=== PATIENT | male | born 1970 | race Caucasian/White ===

== ENCOUNTER 2017-01-27 16:32 | Emergency (ER) | payer BC ==
[~2017-01-27] VITALS: Ht 175.3 cm; Wt 111.4 kg
[~2017-01-27 16:32] MED LIST: FLEXERIL 1010 MG/TAB PO; LOPRESSOR 550 MG/TAB PO; LORTAB 5/500 501 TAB PO; NO HOME MEDICATIONS; PREDNISONE20 MG PO; VASOTEC 2.2.5 MG/TAB PO
[2017-01-27 16:34] VITALS: TEMP 98.4
[2017-01-27] MEDS ORDERED: PRINZIDE 25 MG-1 TAB PO (16:38)
[2017-01-27 17:27] LABS: BASO % 0.3 % (0.0-2.0); EOS # 0.2 (0.0-0.7); EOS % 1.5 % (0-4.0); GRAN # 9.5 (1.4-6.5); GRAN % 73.4 % (42.2-75.2); HEMATOCRIT 43.8 % (42.0-52.0); LYMPH % 15.7 % (20.0-51.0); MEAN CELL VOLUME 90 fl (80.0-100.0); MEAN CORPUSCULAR HEMOGLOBIN 29 pg (27.0-31.0); MEAN CORPUSCULAR HGB CONC 32 g/dl (33.0-37.0); MEAN PLATELET VOLUME 9.2 fl (7.4-10.4); MONO # 1.1 (0.1-0.6); MONO % 8.6 % (1.7-9.3); PLATELET COUNT 247 K/mm3 (130-400); RED BLOOD COUNT 4.87 M/mm3 (4.20-5.60)
[2017-01-27 17:36] LABS: PROTHROMBIN TIME 10.5 SECONDS (9.7-12.8)
[2017-01-27 17:37] LABS: ADJUSTED CALCIUM 9.4 mg/dL (8.4-10.2); ALANINE AMINOTRANSFERASE 38 U/L (21-72); ALBUMIN 3.8 gm/dL (3.5-5.0); ALKALINE PHOSPHATASE 93 U/L (50-136); ANION GAP 10 mmol/L (7-16); BILIRUBIN,TOTAL 0.3 mg/dL (0.0-1.0); BLOOD UREA NITROGEN 18 mg/dL (9-20); CALCIUM 9.2 mg/dL (8.4-10.2); CARBON DIOXIDE 30 mmol/L (22-30); CHLORIDE 99 mmol/L (98-107); GLUCOSE 89 mg/dL (74-106); POTASSIUM 4.3 mmol/L (3.4-5.0); SODIUM 138 mmol/L (137-145); TOTAL PROTEIN 7.2 gm/dL (6.4-8.2)
[2017-01-27 17:39] LABS: PARTIAL THROMBOPLASTIN TIME 30.9 SECONDS (26.0-37.0)
[2017-01-27 17:49] LABS: TROPONIN-I < 0.012 ng/mL (0.000-0.034)
[2017-01-27 22:00] VITALS: BP 146/114; PULSE 94
== END 2017-01-27 22:02 | disposition home or self-care (01) ==
LOC: COL.ER 16:32
PROVIDERS: Emergency Medicine
DX: R07.89 Other chest pain (principal); I10 Essential (primary) hypertension; F17.210 Nicotine dependence, cigarettes, uncomplicated; Z98.890 Other specified postprocedural states
CPT/HCPCS: J2270

== ENCOUNTER 2019-05-02 10:07 | Inpatient (IN) | payer BC ==
[~2019-05-02] VITALS: Ht 175.3 cm; Wt 109.1 kg
[~2019-05-02 10:07] MED LIST changes: +PRINZIDE 25 MG-1 TAB PO
[2019-05-02] MEDS ORDERED: ASPIRIN 81M81 MG/TA2 PO (10:35)
[2019-05-02 10:40] LABS: BASO % 0.3 % (0.0-2.0); EOS # 0.1 (0.0-0.7); EOS % 0.8 % (0-4.0); GRAN % 76.4 % (42.2-75.2); HEMATOCRIT 48.2 % (42.0-52.0); HEMOGLOBIN 15.3 g/dl (13.5-18.0); LYMPH # 1.8 (1.2-3.4); MEAN CELL VOLUME 86 fl (80.0-100.0); MEAN CORPUSCULAR HEMOGLOBIN 27 pg (27.0-31.0); MEAN CORPUSCULAR HGB CONC 32 g/dl (33.0-37.0); MEAN PLATELET VOLUME 9.3 fl (7.4-10.4); PLATELET COUNT 272 K/mm3 (130-400); RED BLOOD COUNT 5.62 M/mm3 (4.20-5.60); REDCELL DISTRIBUTION WIDTH-CV 13.6 % (11.5-14.5)
[2019-05-02 10:47] LABS: ALBUMIN 4.1 gm/dL (3.5-5.0); BILIRUBIN,TOTAL 0.4 mg/dL (0.0-1.0); CALCIUM 9.3 mg/dL (8.4-10.2); CREATININE, serum 1.07 (0.66-1.25); MAGNESIUM 1.8 mg/dL (1.6-2.3); POTASSIUM 3.9 mmol/L (3.4-5.0); TOTAL PROTEIN 7.7 gm/dL (6.4-8.2)
[2019-05-02 10:59] LABS: TROPONIN-I 0.033 ng/mL (0.000-0.035)
[2019-05-02 11:17] LABS: TSH w REFLEX 2.37 uIU/mL (0.465-4.680)
[2019-05-02 11:40] LABS: COLLECTION METHOD CLEAN CATCH
[2019-05-02 11:52] LABS: PH 6 (5-8); SQUAMOUS EPITHELIAL 0-2 /hpf; URINE APPEARANCE Clear; URINE BACTERIA None Seen /hpf; URINE BILIRUBIN Negative (NEGATIVE); URINE BLOOD Negative (NEGATIVE); URINE COLOR Straw; URINE GLUCOSE Negative (NEGATIVE); URINE KETONE Negative (NEGATIVE); URINE LEUKOCYTE ESTERASE Negative (NEGATIVE); URINE NITRATE Negative (NEGATIVE); URINE PROTEIN(semi-quant) Negative (NEGATIVE); URINE RBC 0-2 /hpf; URINE UROBILINOGEN Negative (NEGATIVE)
[2019-05-02 15:00] VITALS: BP 124/89; PULSE 90; TEMP 98
--- NOTE | 2019-05-02 16:26 | NUR ---
Patient is resting on his chair watching TV. patient seem pleasant A/O.
[2019-05-02 17:31] VITALS: BP 117/53; PULSE 107; TEMP 97.9
--- NOTE | 2019-05-02 17:47 | NUR ---
Patient took his eating snacks in his room. he is also watching TV at the moment. Patient was admitted for observation due to heart palpitation at work. Patient said his HR was over 200 when assessed by his work nurse. patient HR is vurrentlu within normal range.
--- NOTE | 2019-05-02 18:33 | NUR ---
Received call of elevated troponin which has not changed from prior. Did speak with provider regarding this.
--- NOTE | 2019-05-02 19:30 | NUR ---
Received report from day shift nurse. Seen patient sitting in the bed, eating dinner. With IV at left AC. Informed patient about diet restriction of no caffeine until after stresstest or echo is complete. and NPO by midnight. Patient acknowledge and shows understanding. Patient denies any pain.
--- NOTE | 2019-05-02 19:33 | NUR ---
Patient is in bed watch TV. IV fluid running.
[2019-05-02 19:49] VITALS: BP 117/60; PULSE 94; TEMP 98.9
[2019-05-02 23:41] VITALS: BP 120/58; PULSE 64; PULSE 92; TEMP 98
[2019-05-03] VITALS (8 sets, daily range): BP systolic 107–190; BP diastolic 61–105; PULSE 78–129; TEMP 98.1–98.8
--- NOTE | 2019-05-03 06:11 | NUR ---
Patient states he wanted to be out of the hospital and verbalized being upset that his doctor didn't inform him about the stress test although this nurse informed him about diet restrictions that he cannot have caffeine and npo post midnight due to stress test that he will have this morning. He's upset that he cannot drink water as well.
[2019-05-03 06:42] LABS: BASO # 0.1 (0.0-0.2); BASO % 0.5 % (0.0-2.0); EOS # 0.3 (0.0-0.7); EOS % 3.2 % (0-4.0); GRAN % 66.7 % (42.2-75.2); HEMATOCRIT 45.6 % (42.0-52.0); HEMOGLOBIN 14.2 g/dl (13.5-18.0); LYMPH % 19.1 % (20.0-51.0); MEAN CELL VOLUME 88 fl (80.0-100.0); MEAN CORPUSCULAR HEMOGLOBIN 27 pg (27.0-31.0); MEAN CORPUSCULAR HGB CONC 31 g/dl (33.0-37.0); MEAN PLATELET VOLUME 9.4 fl (7.4-10.4); MONO # 1.1 (0.1-0.6); MONO % 10.1 % (1.7-9.3); PLATELET COUNT 239 K/mm3 (130-400); REDCELL DISTRIBUTION WIDTH-CV 13.7 % (11.5-14.5)
[2019-05-03 06:55] LABS: CHOLESTEROL RISK RATIO 4.7
--- NOTE | 2019-05-03 10:48 | NUR ---
CAMRON met with the patient to discuss discharge plan. 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 He reports independence with ADLs and does not have any DME. The patient's PCP is Dr. Jada Monique and he receives his medications at [facility]. He reports no difficulties obtaining his meds. The patient does not have advanced directives completed, but he was interested in obtaining a form for DPOA-HC. CAMRON provided. The patient plans to return home with his fiancee upon discharge. No additional needs at this time.
[2019-05-03] MEDS ORDERED: CLEOCIN HC150 MG/CAP PO (15:29)
[2019-05-03] MEDS ORDERED: LOPRESSOR 225 MG/TAB PO (15:29)
--- NOTE | 2019-05-03 16:01 | NUR ---
patient had loop recorder placed by , Dr. Estrella gave go ahead for dischagre, hospitalist put in discharge orders, I discussed discharge instructions, instructed to take meds as prescribed, and scripts sent to pharmacy for him, first dose of Abx given prior to leaving, discussed bathing restrictions with loop incision site, discussed smoking cessation and low sodium diet with him, IV and tele removed, ambulatory and leaving with his , I escoted him outthe door
== END 2019-05-03 16:03 | disposition home or self-care (01) | DRG 261 ==
LOC: COL.ER 10:07 → MEDICAL 12:54
PROVIDERS: Emergency Medicine; Physician Assistant; ADMIT Hospitalist
PROC: 0JH602Z Insertion of Monitoring Device into Chest Subcutaneous Tissue and Fascia, Open Approach (ICD-10-PCS; principal; 2019-05-02)
DX: I48.91 Unspecified atrial fibrillation (principal); I50.20 Unspecified systolic (congestive) heart failure; I42.0 Dilated cardiomyopathy; I10 Essential (primary) hypertension; F17.210 Nicotine dependence, cigarettes, uncomplicated; I11.0 Hypertensive heart disease with heart failure; E66.9 Obesity, unspecified; Z79.82 Long term (current) use of aspirin; Z88.0 Allergy status to penicillin
CPT/HCPCS: 99231-AI; A9500; J1650; J2785; J7030; Q9967

== ENCOUNTER 2020-01-12 16:05 | Emergency (ER) | payer BC ==
[~2020-01-12] VITALS: Ht 175.3 cm; Wt 113.6 kg
[~2020-01-12 16:05] MED LIST changes: +ASPIRIN 81M81 MG/TA2 PO; +CLEOCIN HC150 MG/CAP PO; +LOPRESSOR 225 MG/TAB PO
[2020-01-12 16:24] VITALS: TEMP 98.8
[2020-01-12] MEDS ORDERED: WELLBUTRIN SR100 M1 PO (17:48)
[2020-01-12 18:01] LABS: BASO # 0.1 (0.0-0.2); BASO % 0.4 % (0.0-2.0); EOS # 0.3 (0.0-0.7); EOS % 2.9 % (0-4.0); GRAN # 7.8 (1.4-6.5); GRAN % 67.9 % (42.2-75.2); HEMATOCRIT 39.5 % (42.0-52.0); HEMOGLOBIN 12.8 g/dl (13.5-18.0); LYMPH # 1.9 (1.2-3.4); LYMPH % 16.8 % (20.0-51.0); MEAN CELL VOLUME 87 fl (80.0-100.0); MEAN CORPUSCULAR HEMOGLOBIN 28 pg (27.0-31.0); MEAN CORPUSCULAR HGB CONC 32 g/dl (33.0-37.0); MEAN PLATELET VOLUME 8.8 fl (7.4-10.4); MONO # 1.3 (0.1-0.6); MONO % 11.4 % (1.7-9.3); PLATELET COUNT 288 K/mm3 (130-400); RED BLOOD COUNT 4.55 M/mm3 (4.20-5.60)
[2020-01-12 18:12] LABS: ALBUMIN 3.6 gm/dL (3.5-5.0); BILIRUBIN,TOTAL 0.3 mg/dL (0.0-1.0); C-REACTIVE PROTEIN 4.6 mg/dL (0.0-0.9); CALCIUM 8.5 mg/dL (8.4-10.2); CREATININE, serum 1.1 (0.66-1.25); POTASSIUM 3.7 mmol/L (3.4-5.0)
[2020-01-12] MEDS ORDERED: ELIQUIS 5MG PO (19:01)
[2020-01-12 19:23] VITALS: BP 129/84; PULSE 83
== END 2020-01-12 19:25 | disposition home or self-care (01) ==
LOC: COL.ER 16:05
PROVIDERS: Emergency Medicine
DX: M79.662 Pain in left lower leg (principal); I10 Essential (primary) hypertension; F17.210 Nicotine dependence, cigarettes, uncomplicated; Z79.82 Long term (current) use of aspirin; Z88.0 Allergy status to penicillin

== ENCOUNTER → 2020-01-15 | Outpatient (CLI) | payer BC ==
[~2020-01-15] MED LIST changes: +ELIQUIS 5MG PO; +WELLBUTRIN SR100 M1 PO
== END ==
LOC: COL.VAS 11:45
DX: M79.662 Pain in left lower leg (principal)

== ENCOUNTER 2020-07-28 09:32 | Inpatient (IN) | payer BC ==
[~2020-07-28] VITALS: Ht 175.3 cm; Wt 106.8 kg
[2020-07-28] VITALS (206 sets, daily range): BP systolic 58–146; BP diastolic 25–87; PULSE 83–113; TEMP 98; O2SAT 90–99
[~2020-07-28 09:32] MED LIST changes: -WELLBUTRIN SR100 M1 PO; +WELLBUTRIN SR150 M1 PO
[2020-07-28 10:11] LABS: HEMATOCRIT 41.9 % (42.0-52.0); HEMOGLOBIN 12.7 g/dl (13.5-18.0); MEAN CELL VOLUME 82 fl (80.0-100.0); MEAN CORPUSCULAR HEMOGLOBIN 25 pg (27.0-31.0); MEAN CORPUSCULAR HGB CONC 30 g/dl (33.0-37.0); MEAN PLATELET VOLUME 8.9 fl (7.4-10.4); PLATELET COUNT 391 K/mm3 (130-400); RED BLOOD COUNT 5.13 M/mm3 (4.20-5.60); REDCELL DISTRIBUTION WIDTH-CV 15.9 % (11.5-14.5)
[2020-07-28 10:25] LABS: ALANINE AMINOTRANSFERASE 26 U/L (4-49); ALBUMIN 3.5 gm/dL (3.5-5.0); ALKALINE PHOSPHATASE 118 U/L (50-136); ANION GAP 9 mmol/L (7-16); AST,SGOT 30 U/L (15-37); BILIRUBIN,TOTAL 0.9 mg/dL (0.0-1.0); BLOOD UREA NITROGEN 16 mg/dL (9-20); CALCIUM 8.5 mg/dL (8.4-10.2); CARBON DIOXIDE 25 mmol/L (22-30); CHLORIDE 97 mmol/L (98-107); CREATININE, serum 0.94 (0.66-1.25); GLUCOSE 196 mg/dL (74-106); LIPASE 27 U/L (23-300); POTASSIUM 4.6 mmol/L (3.4-5.0); SODIUM 131 mmol/L (137-145); TOTAL PROTEIN 7.4 gm/dL (6.4-8.2)
[2020-07-28 10:30] LABS: COLLECTION METHOD CLEAN CATCH
[2020-07-28 10:37] LABS: TROPONIN-I < 0.012 ng/mL (0.000-0.035)
[2020-07-28 10:43] LABS: MUCOUS Present /lpf; PH 5 (5-8); SQUAMOUS EPITHELIAL 0-2 /hpf; URINE APPEARANCE Cloudy; URINE BACTERIA Rare /hpf; URINE BILIRUBIN Positive (NEGATIVE); URINE BLOOD Negative (NEGATIVE); URINE COLOR Amber; URINE GLUCOSE Negative (NEGATIVE); URINE KETONE Trace (NEGATIVE); URINE LEUKOCYTE ESTERASE Negative (NEGATIVE); URINE NITRATE Negative (NEGATIVE); URINE PROTEIN(semi-quant) 2+ (NEGATIVE)
[2020-07-28 11:07] LABS: ANISOCYTOSIS 1+; BAND 15 % (0-10); HYPOCHROMIA 1+; LYMPHOCYTE 7 % (20.0-51.0); NEUTROPHILS 73 % (42.0-75.2); PLATELET ESTIMATE NORMAL (NORMAL)
--- NOTE | 2020-07-28 16:40 | NUR ---
PATIENT BROUGHT BACK FROM OR VIA BED. PACU STAFF AND TOBACCO PRIZER BRAD GOEL AT BEDSIDE. REPORT RECIEVED. PATIENTS BLOOD PRESSURE LOW, RETAKEN, TURNED OF EPIDURAL. FLUID BOLUS STARTED. PATIENT IS DIAPHORETIC, AND PALE. DENIES PAIN OR NAUSEA. DR. PARHAM MADE AWARE OF STATUS, TELEPHONE ORDERS RECIEVED TO START LEVOPHED BP ARE NOT INCREASING. OXYGEN AT 4L VIA NC. LARGE ABDOMINAL INCISION WITH SCOTT AND ABD PADS WITH SOME OLD BLOODY DRAINAGE NOTED. SURGEON AT BEDSIDE TO START RIGHT IJ. RT AT BEDSIDE TO DRAW ABG. CONSULT ORDERED FOR PULMONOLOGY. PATIENT REMAINS DROWSY, BUT ANSWERS APPROPRIATLY. X-RAY AT BEDSIDE FOR CHEST X RAY. CALL LIGHT AT BEDSIDE. HOURLY BLOOD SUGARS TAKEN AT THIS TIME. WILL CONTINUE TO MONITOR.
--- NOTE | 2020-07-28 16:59 | NUR ---
VERBAL ORDERS RECIEVED FROM DR. PARHAM TO START LEVOPHED FOR DECREASED BLOOD PRESSURES. STARTED PER ORDERS. WILL MONITOR.
[2020-07-28 17:18] LABS: ARTERIAL BLD GAS O2 SATURATION 96.5 % (92-100); ARTERIAL BLD GAS TCO2 CT 25.1; ARTERIAL BLOOD GAS BASE EXCESS -2.4 (-2-2); ARTERIAL BLOOD GAS HCO3 23.7 meq/L (22-26); ARTERIAL BLOOD GAS PCO2 46.2 mmHg (35-45); ARTERIAL BLOOD GAS PO2 95.1 mmHg (80-100); ARTERIAL BLOOD GAS pH 7.33 (7.35-7.45)
--- NOTE | 2020-07-28 17:30 | NUR ---
DR. ARMENTA AT BEDSIDE GIVEN ORDERS TO HOLD LOVENOX, REPEAT ABG AND LACTIC. IN AGREEMENT WITH FLUIDS RUNNING AT 125ML/HR. REQUESTS HE BE PLACED ON BI-PAP. PATIENT IN AGREEMENT. RT AT BEDSIDE FOR SET UP. BRAD GOEL AT BEDSIDE, RESUMED EPIDURAL. CALL LIGHT AVAILABLE, WILL CONTINUE TO MONITOR.
--- NOTE | 2020-07-28 20:23 | NUR ---
Received report from TORREY Harp. All medications verified and all questions answered. No complaints or concerns noted at this. VSS. Will resume care at this time.
[2020-07-28 23:58] LABS: ARTERIAL BLD GAS O2 SATURATION 95.7 % (92-100); ARTERIAL BLD GAS TCO2 CT 25.6; ARTERIAL BLOOD GAS BASE EXCESS 0.2 (-2-2); ARTERIAL BLOOD GAS HCO3 24.4 meq/L (22-26); ARTERIAL BLOOD GAS PCO2 38.2 mmHg (35-45); ARTERIAL BLOOD GAS PO2 77.8 mmHg (80-100); ARTERIAL BLOOD GAS pH 7.42 (7.35-7.45)
[2020-07-29] VITALS (667 sets, daily range): BP systolic 118–145; BP diastolic 69–90; PULSE 104–114; TEMP 97.6–98.3; O2SAT 76–99
[2020-07-29 05:12] LABS: BASO # 0.1 (0.0-0.2); BASO % 0.2 % (0.0-2.0); GRAN # 25.2 (1.4-6.5); GRAN % 84.6 % (42.2-75.2); LYMPH # 1.1 (1.2-3.4); LYMPH % 3.7 % (20.0-51.0); MEAN CELL VOLUME 82 fl (80.0-100.0); MEAN CORPUSCULAR HGB CONC 31 g/dl (33.0-37.0); MEAN PLATELET VOLUME 9.2 fl (7.4-10.4); MONO # 3.2 (0.1-0.6); MONO % 10.7 % (1.7-9.3); PLATELET COUNT 307 K/mm3 (130-400); REDCELL DISTRIBUTION WIDTH-CV 15.8 % (11.5-14.5)
--- NOTE | 2020-07-29 05:13 | NUR ---
Spoke with Dr. Clark with [facility] and relayed patients last several blood sugar finger sticks were within goal range of 140-180 for insulin gtt protocol. Received orders for Q4hr blood sugar checks on a mid sliding scale.
[2020-07-29 05:23] LABS: ALBUMIN 2.5 gm/dL (3.5-5.0); BILIRUBIN,TOTAL 1.1 mg/dL (0.0-1.0); CALCIUM 7.6 mg/dL (8.4-10.2); CREATININE, serum 1.1 (0.66-1.25); HEMATOCRIT 30.2 % (42.0-52.0); HEMOGLOBIN 9.2 g/dl (13.5-18.0); MAGNESIUM 1.9 mg/dL (1.6-2.3); MEAN CORPUSCULAR HEMOGLOBIN 25 pg (27.0-31.0); PHOSPHOROUS 2.6 mg/dL (2.5-4.5); POTASSIUM 4.2 mmol/L (3.4-5.0); TOTAL PROTEIN 5.4 gm/dL (6.4-8.2)
[2020-07-29 05:28] LABS: INR 1.5 (0.8-3.0); PROTHROMBIN TIME 16.4 SECONDS (9.7-12.8)
--- NOTE | 2020-07-29 05:30 | NUR ---
Spoke with Dr. Clark of [facility] and relayed critical WBC count of 29.7 and stated that patient was on several abxs and had infectious disease consulted. No new orders at this time.
[2020-07-29 05:44] LABS: ARTERIAL BLD GAS O2 SATURATION 90.6 % (92-100); ARTERIAL BLD GAS TCO2 CT 25.3; ARTERIAL BLOOD GAS BASE EXCESS 0.1 (-2-2); ARTERIAL BLOOD GAS HCO3 24.2 meq/L (22-26); ARTERIAL BLOOD GAS PCO2 37.2 mmHg (35-45); ARTERIAL BLOOD GAS PO2 55.1 mmHg (80-100); ARTERIAL BLOOD GAS pH 7.43 (7.35-7.45)
--- NOTE | 2020-07-29 16:11 | NUR ---
Computing Systems Mechanic met with the patient to complete intake. The patient lives in [place] with his life partner of 14 years, Marilee. The patient denies DME use and is independent. The patient's PCP is Dr. Monique and patient receives medications from [facility]. The patient does not have advanced directives in the EMR and was not interested in DPOA-HC form. The patient is not but has a daughter in [place] . No other children. The patient plans to return home at discharge with Marilee providing transportation. The patient is currently on oxygen but is not on it at baseline. Discharge disposition: Home with life partner Marilee
--- NOTE | 2020-07-29 19:30 | NUR ---
Patient resting quielty in bed watching television. Reports tolerable pain level controlled by epidural. HR mid-high 120s; other vitals within normal limits. Patient noted to be frequently burping. Bowel sounds are hypoactive upon auscultation. Some shadowing noted to abdominal midline dressing, although this is unchanged from prior shift, as it has been previously marked. All three lap sites are clean, dry, and intact. No further needs noted at this time.
[2020-07-29 23:32] LABS: HEMATOCRIT 29.5 % (42.0-52.0)
--- NOTE | 2020-07-29 23:36 | NUR ---
Patient's HR noted to be high 120s to low 130s since approximately 2099. Other vitals signs within normal limits. Patient states pain is well controlled, although he is experiencing a lot of gas and some nausea. Patient noted to be burping quite frequently, stating he feels as though he has something caught in the back of his throat. PRN zofran administered at 2040. Patient experiencing episodes of emesis with HR sustaining 150-160s despite its administration. PRN phenergan administered and Dr. Fernandez notified. Received orders to obtain an H & H and to consult hospitalist. Rosalinda notified of consult and H & H results.
[2020-07-30] VITALS (647 sets, daily range): BP systolic 124–150; BP diastolic 59–94; PULSE 106–133; TEMP 97.1–98.6; O2SAT 62–100
[2020-07-30 05:21] LABS: MEAN CELL VOLUME 82 fl (80.0-100.0); MEAN CORPUSCULAR HGB CONC 31 g/dl (33.0-37.0); MEAN PLATELET VOLUME 9.1 fl (7.4-10.4); PLATELET COUNT 362 K/mm3 (130-400); RED BLOOD COUNT 3.84 M/mm3 (4.20-5.60); REDCELL DISTRIBUTION WIDTH-CV 16.1 % (11.5-14.5)
[2020-07-30 05:25] LABS: HEMATOCRIT 31.3 % (42.0-52.0); HEMOGLOBIN 9.6 g/dl (13.5-18.0); MEAN CORPUSCULAR HEMOGLOBIN 25 pg (27.0-31.0)
[2020-07-30 05:26] LABS: ARTERIAL BLD GAS O2 SATURATION 94.2 % (92-100); ARTERIAL BLOOD GAS BASE EXCESS 3.3 (-2-2); ARTERIAL BLOOD GAS HCO3 27.7 meq/L (22-26); ARTERIAL BLOOD GAS PCO2 41.5 mmHg (35-45); ARTERIAL BLOOD GAS PO2 69.8 mmHg (80-100); ARTERIAL BLOOD GAS pH 7.44 (7.35-7.45)
[2020-07-30 05:28] LABS: INR 1.3 (0.8-3.0); PROTHROMBIN TIME 14.6 SECONDS (9.7-12.8)
[2020-07-30 05:32] LABS: ALBUMIN 2.8 gm/dL (3.5-5.0); BILIRUBIN,TOTAL 0.5 mg/dL (0.0-1.0); CALCIUM 7.8 mg/dL (8.4-10.2); CREATININE, serum 1.08 (0.66-1.25); POTASSIUM 4.5 mmol/L (3.4-5.0)
[2020-07-30 05:45] LABS: BAND 1 % (0-10); LYMPHOCYTE 6 % (20.0-51.0); NEUTROPHILS 90 % (42.0-75.2); PLATELET ESTIMATE NORMAL (NORMAL)
[2020-07-30 05:46] LABS: ANISOCYTOSIS 1+; HYPOCHROMIA 3+
--- NOTE | 2020-07-30 08:00 | NUR ---
Midline surgical dressing changed. Incision edges well approximated, no redness, minimal serosanguinous dranige near naval.
--- NOTE | 2020-07-30 09:50 | NUR ---
Initial visit; Patient thanked Chucking Machine Operator for looking in on him and offering God's blessings and to keep him in her prayers.
[2020-07-30 09:51] LABS: MAGNESIUM 2.4 mg/dL (1.6-2.3); PHOSPHOROUS 3.4 mg/dL (2.5-4.5)
--- NOTE | 2020-07-30 18:33 | NUR ---
Pt's scrotum has been kept elevated throughout the day
--- NOTE | 2020-07-30 19:40 | NUR ---
Received report from TORREY You. All medications verified and all questions answered. VSS. Surgical site and dressing assess, appears CDI. No concerns or complaints noted from patient at this time. Patient up watching TV in recliner. Will resume care at this time.
[2020-07-31] VITALS (255 sets, daily range): BP systolic 112–133; BP diastolic 62–82; PULSE 108–127; TEMP 98.3–99.4; O2SAT 75–100
[2020-07-31 05:19] LABS: MEAN CELL VOLUME 83 fl (80.0-100.0); MEAN CORPUSCULAR HGB CONC 30 g/dl (33.0-37.0); MEAN PLATELET VOLUME 9.2 fl (7.4-10.4); PLATELET COUNT 389 K/mm3 (130-400); REDCELL DISTRIBUTION WIDTH-CV 16.1 % (11.5-14.5)
[2020-07-31 05:24] LABS: HEMATOCRIT 30.7 % (42.0-52.0); HEMOGLOBIN 9.2 g/dl (13.5-18.0); MEAN CORPUSCULAR HEMOGLOBIN 25 pg (27.0-31.0)
--- NOTE | 2020-07-31 05:24 | NUR ---
Physician not notified of critical WBC value d/t value trending down.
[2020-07-31 05:25] LABS: INR 1.3 (0.8-3.0)
[2020-07-31 05:32] LABS: ALBUMIN 2.7 gm/dL (3.5-5.0); BILIRUBIN,TOTAL 0.6 mg/dL (0.0-1.0); CALCIUM 7.7 mg/dL (8.4-10.2); CREATININE, serum 1.05 (0.66-1.25); MAGNESIUM 2.3 mg/dL (1.6-2.3); PHOSPHOROUS 3.3 mg/dL (2.5-4.5); TOTAL PROTEIN 5.8 gm/dL (6.4-8.2)
[2020-07-31 05:39] LABS: PRE ALBUMIN 7.3 mg/dL (17.6-36.0)
[2020-07-31 05:44] LABS: ARTERIAL BLD GAS O2 SATURATION 90.7 % (92-100); ARTERIAL BLD GAS TCO2 CT 29.1; ARTERIAL BLOOD GAS BASE EXCESS 2.8 (-2-2); ARTERIAL BLOOD GAS HCO3 27.8 meq/L (22-26); ARTERIAL BLOOD GAS PCO2 44.9 mmHg (35-45); ARTERIAL BLOOD GAS PO2 60.4 mmHg (80-100); ARTERIAL BLOOD GAS pH 7.41 (7.35-7.45)
[2020-07-31 07:17] LABS: ANISOCYTOSIS 1+; EOSINOPHIL 1 % (0-4); HYPOCHROMIA 4+; LYMPHOCYTE 7 % (20.0-51.0); NEUTROPHILS 79 % (42.0-75.2); PLATELET ESTIMATE NORMAL (NORMAL)
--- NOTE | 2020-07-31 10:57 | NUR ---
Report phoned to TORREY Norton
--- NOTE | 2020-07-31 11:30 | NUR ---
Pt transfered to Surgical Floor via wheelchair - all belongings sent with pt - Marilee with pt as well. Pt tolerated transfer well with no compromise to Epidural or PICC. Recieved by TORREY Norton - vitals taken and stable. Pt did ambulate from entrance of room around bed to chair with standby assistance - pt out of breath once seated however recovered quickly
--- NOTE | 2020-07-31 11:33 | NUR ---
Patient to room from ICU via wheelchair. Ambulates from doorway to recliner. Gait slow and steady. Alert and oriented x4. Oxygen on at 3L/NC. Denies shortness of air. Lungs CTA in upper lobes, diminished in lower lobes. Bowel sounds hypoactive. Abd distended, firm. Midline abd incision with dressing intact, small amount of serous drainage noted on dressing. Lap sites x3 to left abd with bandaids CDI. Patient has scrotal swelling and scrotum elevated with hand towel. PICC line to right upper arm with Flagyl infusing in one port and TPN infusing at 70mL/hr in the other port. INT to left AC without redness/swelling/discharge. Epidural in place. Rates pain 6/10 in abd, says when he coughs the pain is sharp, otherwise it is a throb pain. [place] to room. Significant other in room with the patient. Patient has water. Denies additioanl needs at this time.
--- NOTE | 2020-07-31 13:32 | NUR ---
Sitting up in chair watching TV. Patient attempted to eat some clear liquid lunch but is having nausea and has had a couple episodes of emesis. Administer Zofran as prescribed at this time. Patient denies additional needs at this time.
--- NOTE | 2020-07-31 14:38 | NUR ---
Patient requests to walk into bathroom. Patient ambulates into bathroom with standby assist of one. Gait slow but steady. A little nauseated and one episode of emesis initially but then resolved. Patient reports that the Zofran helped a lot. Patient able to void. Ambulates back to chair. Legs and scrotum elevated. Patient denies additional needs at this time.
--- NOTE | 2020-07-31 16:00 | NUR ---
Patient sitting up in chair. Has had a couple more episodes of emesis. Patient says that he had a conversation earlier with Dr. Nelson regarding placing a NG tube. Patient says that he understands why it was recommended, not ready to commit to getting one. Says that he wants to give it overnight to see how things go and if not better tomorrow may agree to get the NG. TPN tubing and bag changed at this time after verification by this nurse and TORREY Tsang. Assist patient in repositioning scrotum and elevating a little more. COntinues to have some pain in his abd that he uses the epidural as needed to help alleviate. Patient denies additional needs or concerns at this time.
--- NOTE | 2020-07-31 16:57 | NUR ---
Patient assisted into bathroom to void and patient returns to chair. Gait slow and steady. Patient able to stand for a little bit and patient even squats at times because he says it feels good on his scrotum. Patient says that he has a little tightness in his right upper lobe and patient has some wheezes. Contact RT and they will come assess and provide treatment. Patient sits back in recliner. Denies additional needs at this time.
--- NOTE | 2020-07-31 18:03 | NUR ---
Sitting up in recliner trying to eat clear liquids. Patient has had a couple episodes of emesis with the clear liquids. Will administer Reglan as prescribed. Patient is frustrated he "is not doing something right". Reassurance and encouragement provided to the patient. Patient denies additional needs.
--- NOTE | 2020-07-31 20:40 | NUR ---
Pt. sitting up in chair at this time. Pt. is A&OX3, assessment complete. PICC to rt. upper arm patent, TPN infusing per orders. Abd. midline incision CDI with gauze, 3 abd. lap sites with bandaids also CDI. Pt. continues to have nausea and vomiting. Gave Zofran. Pt. denies pain or other needs, call light within reach.
[2020-08-01] VITALS (7 sets, daily range): BP systolic 114–137; BP diastolic 62–77; PULSE 98–122; TEMP 97.4–98.2
--- NOTE | 2020-08-01 03:46 | NUR ---
Epidural empty, [facility] paged.
--- NOTE | 2020-08-01 03:54 | NUR ---
[facility] returned page. Informed Shabbir that Epidural was empty. Decision was made by Shabbir to turn epidural off at this time and give alternative pain medications at this time.
[2020-08-01 10:02] LABS: INR 1.4 (0.8-3.0); PROTHROMBIN TIME 15.5 SECONDS (9.7-12.8)
[2020-08-01 10:04] LABS: MEAN CELL VOLUME 84 fl (80.0-100.0); MEAN CORPUSCULAR HGB CONC 30 g/dl (33.0-37.0); MEAN PLATELET VOLUME 9.2 fl (7.4-10.4); PLATELET COUNT 408 K/mm3 (130-400); RED BLOOD COUNT 3.69 M/mm3 (4.20-5.60); REDCELL DISTRIBUTION WIDTH-CV 16.1 % (11.5-14.5)
[2020-08-01 10:06] LABS: ALBUMIN 2.9 gm/dL (3.5-5.0); CALCIUM 8.3 mg/dL (8.4-10.2); CREATININE, serum 1.26 (0.66-1.25); MAGNESIUM 2.6 mg/dL (1.6-2.3); PHOSPHOROUS 3.7 mg/dL (2.5-4.5); POTASSIUM 4.3 mmol/L (3.4-5.0); TOTAL PROTEIN 6.3 gm/dL (6.4-8.2)
[2020-08-01 10:19] LABS: HEMATOCRIT 30.8 % (42.0-52.0); HEMOGLOBIN 9.3 g/dl (13.5-18.0); MEAN CORPUSCULAR HEMOGLOBIN 25 pg (27.0-31.0)
[2020-08-01 10:53] LABS: BAND 10 % (0-10); LYMPHOCYTE 7 % (20.0-51.0); METAMYELOCYTE 5 % (0-0); NEUTROPHILS 62 % (42.0-75.2)
[2020-08-01 10:54] LABS: ANISOCYTOSIS 1+; PLATELET ESTIMATE NORMAL (NORMAL)
--- NOTE | 2020-08-01 18:25 | NUR ---
Patient resting in bedside recliner at this time. TPN per orders. Patient had some nausea early in the shift and had one episode of emesis, emesis was liquid and green, no foul odor. Administered PRN antiemetic, patient reported relief and has had no further episodes of emesis. Patient has reported passing gas but continues to deny bowel movement. Administered PRN pain medication per orders and patient request. Patient currently denies needs, call light within reach.
--- NOTE | 2020-08-01 20:50 | NUR ---
Pt. sitting up in bed. Pt. is a&OX3, assessment complete. PICC to rt. upper arm patent, TPN running per orders. Pt. reports abd pain at a 6 on pain scale, gave pain meds per orders. Pt. denies further needs. Call light within reach.
[2020-08-02 03:43] VITALS: BP 116/61; PULSE 99; TEMP 97.9
[2020-08-02 06:12] LABS: MEAN CELL VOLUME 83 fl (80.0-100.0); MEAN CORPUSCULAR HGB CONC 29 g/dl (33.0-37.0); MEAN PLATELET VOLUME 8.9 fl (7.4-10.4); PLATELET COUNT 460 K/mm3 (130-400); RED BLOOD COUNT 3.78 M/mm3 (4.20-5.60); REDCELL DISTRIBUTION WIDTH-CV 16.4 % (11.5-14.5)
[2020-08-02 06:19] LABS: HEMATOCRIT 31.4 % (42.0-52.0); HEMOGLOBIN 9.2 g/dl (13.5-18.0); MEAN CORPUSCULAR HEMOGLOBIN 24 pg (27.0-31.0)
[2020-08-02 06:25] LABS: ALBUMIN 3.1 gm/dL (3.5-5.0); BILIRUBIN,TOTAL 0.7 mg/dL (0.0-1.0); CALCIUM 8.4 mg/dL (8.4-10.2); CREATININE, serum 1.19 (0.66-1.25); MAGNESIUM 2.7 mg/dL (1.6-2.3); PHOSPHOROUS 4.1 mg/dL (2.5-4.5); POTASSIUM 4.3 mmol/L (3.4-5.0); TOTAL PROTEIN 6.8 gm/dL (6.4-8.2)
[2020-08-02 07:35] LABS: BAND 20 % (0-10); EOSINOPHIL 1 % (0-4); LYMPHOCYTE 7 % (20.0-51.0); METAMYELOCYTE 1 % (0-0); MYELOCYTE 2 % (0-0); NEUTROPHILS 51 % (42.0-75.2); PLATELET ESTIMATE INCREASED (NORMAL)
[2020-08-02 07:36] LABS: ANISOCYTOSIS 1+; HYPOCHROMIA 1+
[2020-08-02 07:43] VITALS: BP 122/70; PULSE 95; TEMP 97.3
[2020-08-02 12:00] VITALS: BP 118/64; PULSE 92; TEMP 97.9
--- NOTE | 2020-08-02 13:20 | NUR ---
Ict Trainer met with patient to review discharge plan. Patient states he still plans to return home upon discharge. Patient is no longer on oxygen. SW will continue to follow.
[2020-08-02 15:30] VITALS: BP 119/66; PULSE 95; TEMP 98.4
--- NOTE | 2020-08-02 18:10 | NUR ---
Patient resting in bed, at bedside. Patient is alert and oriented, answers questions appropriately. Patient has ambulated in hallway several times today. One episode of emesis. Patient showered independently. TPN per orders. Administered PRN pain medication per patient request, denies further needs, call light within reach.
[2020-08-02 20:23] VITALS: BP 128/71; PULSE 102; TEMP 98.9
--- NOTE | 2020-08-02 21:47 | NUR ---
Pt. sitting up in bed at this time. Pt. is A&OX3, assessment complete. PICC to rt. upper arm patent, TPN infusing per orders. Pt. reports pain to scrotum at a 6 on pain scale, gave pain meds per orders. Pt. seems to be a bit down tonight. Encouraged pt. that this was a major surgery and it will just take time to heal. He voices understanding and appreciates care given. Pt. denies further needs, call light within reach.
[2020-08-02 23:53] VITALS: BP 128/66; PULSE 101; TEMP 98.5
[2020-08-03 04:38] VITALS: BP 98/56; PULSE 94; TEMP 98.3
--- NOTE | 2020-08-03 05:11 | NUR ---
Pt. had one episode of emesis through the night, gave phenergan, see mar. Pt. reports having 1 small bm also. Pt. denies pain or other needs at this time.
[2020-08-03 06:41] LABS: MEAN CELL VOLUME 84 fl (80.0-100.0); MEAN CORPUSCULAR HGB CONC 29 g/dl (33.0-37.0); MEAN PLATELET VOLUME 9.1 fl (7.4-10.4); PLATELET COUNT 470 K/mm3 (130-400); RED BLOOD COUNT 3.57 M/mm3 (4.20-5.60); REDCELL DISTRIBUTION WIDTH-CV 16.7 % (11.5-14.5)
[2020-08-03 06:50] LABS: CALCIUM 8.1 mg/dL (8.4-10.2); CREATININE, serum 1.07 (0.66-1.25); MAGNESIUM 2.4 mg/dL (1.6-2.3)
[2020-08-03 07:01] LABS: HEMATOCRIT 29.8 % (42.0-52.0); HEMOGLOBIN 8.7 g/dl (13.5-18.0); MEAN CORPUSCULAR HEMOGLOBIN 24 pg (27.0-31.0)
[2020-08-03 07:36] VITALS: BP 118/65; PULSE 94; TEMP 98.1
--- NOTE | 2020-08-03 07:39 | NUR ---
Lying in bed watching TV. Alert and oriented x4. Rates pain in abd 6/10 at this time which is tolerable. Lap sites x3 to left abd all with edges well approximated, no redness/swelling/discharge. Midline incision with mark intact, edges well approximated, no redness/swelling/discharge. Scrotal swelling 3+. Patient says that he had lack of sleep last night due to some personal issues with significant other. Off and on having nausea. Denies additional needs at this time.
[2020-08-03 07:44] LABS: ANISOCYTOSIS 1+; BAND 3 % (0-10); EOSINOPHIL 2 % (0-4); LYMPHOCYTE 10 % (20.0-51.0); METAMYELOCYTE 2 % (0-0); MYELOCYTE 4 % (0-0); NEUTROPHILS 63 % (42.0-75.2); PLATELET ESTIMATE INCREASED (NORMAL)
[2020-08-03 07:45] LABS: HYPOCHROMIA 4+
--- NOTE | 2020-08-03 08:22 | NUR ---
Patient ambulates in halls on own, gait slow and steady. Returns to room and sits up in chair. Did have a bowel movement that was loose.
--- NOTE | 2020-08-03 11:12 | NUR ---
SW spoke with patient's RN regarding discharge. Patient will not discharge home today 08/03.
[2020-08-03 11:52] VITALS: BP 112/65; PULSE 91; TEMP 97.3
--- NOTE | 2020-08-03 11:56 | NUR ---
Sitting up in chair. Has been able to take self to bathroom, has urinated and had loose stools a few times. Rating pain in abd and scrotum 6/10, would like pain medication. Administer [place] as prescribed. Apply barrier cream to scrotum as patient feels like it is "raw" from rubbing on his legs. Elevate scrotum on ice pack per patient request. Patient denies additional needs.
--- NOTE | 2020-08-03 15:01 | NUR ---
Sitting up in chair watching TV. TPN changed at this time after verified by this nurse and TORREY Soto. Patient rating pain in scrotum 10/19. Explain that I will bring pain medication around 1600 when due. Patient verbalizes understanding. Denies additional needs at this time.
[2020-08-03 15:49] VITALS: BP 120/63; PULSE 88; TEMP 98
--- NOTE | 2020-08-03 16:01 | NUR ---
Sitting up in chair. Rating pain in scrotum 7-810 and would like pain medication. Steele administered as prescribed. Patient up to ambulate in halls at this time. Gait slow but steady. Denies additional needs.
--- NOTE | 2020-08-03 18:23 | NUR ---
Patient calls for assistance. SMall area on right side of scrotum that is irritated and has small amount of bleeding. Clena area, apply barrier cream. Patient assisted into comfortable position in recliner to rest. Denies additional needs at this time.
[2020-08-03 19:31] VITALS: BP 130/64; PULSE 92; TEMP 98.3
--- NOTE | 2020-08-03 20:00 | NUR ---
Report received, assumed care for overnight houseperson. Assessment complete. VS stable. A&Ox3-drowsy. Up in recliner at this time. Incision to midline abdomen-mark intact-edges well approximated-no drainage noted. Lap sites X3-edges well approximated-no drainage noted. Voiding without difficulty. States has had several loose stools today and is passing gas with ambulation. Instructed to ambulate this shift as well. PICC to right upper arm flushes without difficulty-good blood return. TPN infusing @68mls/hr. Has tolerated clear liquids without nausea. Noted to have edema to scrotum and penis. Fresh ice packs applied. Denies need for pain medication. Instructed to call for questions/concerns. Verbalizes understanding. Call light in reach. Will monitor.
--- NOTE | 2020-08-03 23:40 | NUR ---
Up to ambulate in the hallway. Ambulated approx 1000 feet without difficulty. States the right side of his testicle is painful-states he is having a hard time getting comfortable in chair. Attempted to put on scrotal support but states its to painful. Mesh panties put on for some support with small ice packs applied. Sitting up on bench at this time.
[2020-08-04 00:11] VITALS: BP 123/66; PULSE 95; TEMP 98.3
--- NOTE | 2020-08-04 01:45 | NUR ---
Called with c/o nausea. Dry heaving/no emesis. REquesting phenergan. Given at this time. Will monitor.
[2020-08-04 03:40] VITALS: BP 120/64; PULSE 94; TEMP 98.4
--- NOTE | 2020-08-04 04:58 | NUR ---
Discussed 12 hour urine collection with patient. Instructed to notify staff of next urination so the time for collection can be established. Verbalizes understanding but states "there is no way I will be able to do this, I cant see and have to sit to urinate." Discussed placing hat in toilet once collection has started as well. States "That will not work either." Finally agreed to at least try the hat. Will begin collection once next void is complete.
--- NOTE | 2020-08-04 05:55 | NUR ---
Assisted up to the bathroom-states he needs to have a bowel movement. Noted to have active bleeding from midline incision site-distal to umbilicus. States he was coughing and felt a "pop." Pressure dressing applied to incision site-ABD/foam tape. Approximate output on inez/floor/gown 50mls. Notified Dr Fernandez-no new orders received-will see patient on rounds this AM. Did have a bowel [id number] liquid stool. Voided without difficulty-12 hour urine collection initiated. Scrotum and penis appear to be more swollen this AM despite ice application. Did ambulate in the hallways this shift. C/O nausea x1 this shift with good relief from Phenergan. Received norco x2 this shift with good pain relief. Total bowel movements this shift [id number] in size. Assisted back to recliner. Reminded to use pillow support for coughing/laughing. Verbalizes understanding. Call light in reach. Will monitor.
[2020-08-04 06:02] LABS: BASO # 0.1 (0.0-0.2); BASO % 0.3 % (0.0-2.0); EOS # 0.5 (0.0-0.7); GRAN # 16.8 (1.4-6.5); GRAN % 64.2 % (42.2-75.2); LYMPH % 7.6 % (20.0-51.0); MEAN CELL VOLUME 83 fl (80.0-100.0); MEAN CORPUSCULAR HGB CONC 30 g/dl (33.0-37.0); MEAN PLATELET VOLUME 8.9 fl (7.4-10.4); MONO # 3.7 (0.1-0.6); MONO % 14.2 % (1.7-9.3); PLATELET COUNT 395 K/mm3 (130-400); RED BLOOD COUNT 3.35 M/mm3 (4.20-5.60); REDCELL DISTRIBUTION WIDTH-CV 16.9 % (11.5-14.5)
[2020-08-04 06:07] LABS: HEMATOCRIT 27.9 % (42.0-52.0); HEMOGLOBIN 8.3 g/dl (13.5-18.0); MEAN CORPUSCULAR HEMOGLOBIN 25 pg (27.0-31.0)
[2020-08-04 06:09] LABS: CALCIUM 7.8 mg/dL (8.4-10.2); CREATININE, serum 0.94 (0.66-1.25); POTASSIUM 3.9 mmol/L (3.4-5.0)
--- NOTE | 2020-08-04 06:50 | NUR ---
C/O pain to testicles/penis/abdomen. Rating pain 7/10 on pain scale-described as throbbing sensation. Dumas given per dr order. Will continue to monitor.
[2020-08-04 08:00] VITALS: BP 114/57; PULSE 87; TEMP 98
--- NOTE | 2020-08-04 08:00 | NUR ---
Sitting up in chair with eyes open. Alert and oriented x4. Rates pain in abd 7/10. Patient expresses frustration as he feels like he is not getting better as he had a stitch to his mid abd incision break open last night, his scrotum is more swollen and painful, and he feels like he has been "hit by a truck". Scrotum has 4+ edema, redness noted to scrotum and pubis area. Right side of scrotum very firm. Pressure dressing that was applied to mid abd incision through night CDI. Lap sites x3 to left abd with edges well approximated, staple intact to each site, and no redness/swelling/discharge. Patient assisted into bathroom to have BM at this time. Unable to collect urine for 12 hour urine specimen and unable to get urinal in area to collect. Patient has loose brown BM. Patient assisted back into recliner. Scrotum elevated on towels. When patient was reclining chair back he felt like something popped in his mid abd incision. Thi, gas charger, in to assist this nurse. Pressure dressing removed from mid abd incision. Area noted below umbilicus, same area as reported by previous nurse, has small gap and seeping serous drainage. No other area noted to be open. Site cleaned with saline and applied 4x4's to area below umbilicus, then covered with abd x2 and reinforced with foam tape. Crisat care provided and barrier cream applied to scrotum and scrotum elevated on towels. Patient expresses lots of frustration today and tearful at times. Reassurance provided to the patient. SOY Ayala, updated on patient. Patient denies additional needs at this time.
--- NOTE | 2020-08-04 10:32 | NUR ---
Patient has been educated on 500ml fluid restriction. Not happy about only getting small amount of oral fluids. Explain to the patient that they have to include his TPN into his fluid intake so that is what is causing such a small amount for him to take in orally. Discuss with the patient that Dr. Fernandez is placing him on a Low fiber diet. Patient says that is great but it will be hard to eat regular food without liquids. Explain that if we can get him to tolerate a little bit of food without any difficulties they can look at stopping the TPN so that his fluid intake orally can be increased. Patient verbalizes understanding. Would like more education on low fiber diet. Explain that I will have Gayla, sleeve turner, come in to talk with him further regarding dietary options. Patient verbalizes understanding. Remains lying in recliner at this time. Will need to go to the bathroom but wants to wait at this time. Will call when ready to go to the bathroom.
[2020-08-04 11:31] VITALS: BP 112/68; PULSE 88; TEMP 98.1
--- NOTE | 2020-08-04 14:24 | NUR ---
Patient got up to the bathroom and had a large amount of fluid come from his dressing. Dressing was completely saturated with serosanguineous drainage. No clots or purulent drainage noted. Jackie are still intact. Replaced 4x4 gauze and ABD pad. Used foam tape to hold dressing in place. Patients significant other was here and they started to argue in the room so she left. He stated he is having a bad day and frustrated with the progress of his health. Changed his gown and cleaned him up. He is walking the hallways now. No other changes at this time. Call light within reach.
[2020-08-04 16:00] VITALS: BP 114/67; PULSE 90; TEMP 98
--- NOTE | 2020-08-04 17:52 | NUR ---
Patient has been resting most the afternoon. He did walk a few laps around the unit after his dressing change. 12 hour urine sent down to lab. Patients pain has been better this afternoon, after getting norco. No complaints of nausea. No other changes at this time. Call light within reach.
[2020-08-04 18:10] LABS: 12 HR URINE TOTAL VOLUME 0.65 L
--- NOTE | 2020-08-04 18:57 | NUR ---
Patient was getting up to the bathroom and wanted his dressing changed again because it was saturated. Charge nurse Greer changed his dressing before he got up. Dressing was saturated again. Dr Eng called and is adjusting his antibiotics. No other changes at this time. Call light within reach.
[2020-08-04 19:36] VITALS: BP 115/50; PULSE 93; TEMP 98
[2020-08-05] VITALS (7 sets, daily range): BP systolic 105–129; BP diastolic 49–68; PULSE 62–100; TEMP 97.6–99.1
--- NOTE | 2020-08-05 06:05 | NUR ---
PT SLEPT IN CHAIR MOST OF THE NIGHT. NO c/o NAUSEA. ABDOMINAL INCISION DRESSING CHANGED TWICE DURING THE NIGHTDUE TO COPIOUS AMOUNTS OF DRAINAGE. DRAINAGE STILL COMING FROM THE SAME SPOT ON THE INCISION. SCROTUM STILL VERY EDEMATOUS. SALVE APPLIED TO SCROTUM TO HELP PREVENT INCREASED SKIN BREAKDOWN.
[2020-08-05 06:14] LABS: MEAN CELL VOLUME 84 fl (80.0-100.0); MEAN CORPUSCULAR HGB CONC 30 g/dl (33.0-37.0); RED BLOOD COUNT 3.36 M/mm3 (4.20-5.60); REDCELL DISTRIBUTION WIDTH-CV 17.2 % (11.5-14.5)
[2020-08-05 06:17] LABS: HEMATOCRIT 28.2 % (42.0-52.0); HEMOGLOBIN 8.4 g/dl (13.5-18.0); MEAN CORPUSCULAR HEMOGLOBIN 25 pg (27.0-31.0); PLATELET COUNT 507 K/mm3 (130-400)
[2020-08-05 06:35] LABS: CREATININE, serum 0.83 (0.66-1.25); MAGNESIUM 2.2 mg/dL (1.6-2.3); PHOSPHOROUS 3.2 mg/dL (2.5-4.5); POTASSIUM 3.8 mmol/L (3.4-5.0)
--- NOTE | 2020-08-05 07:14 | NUR ---
Spoke to on the phone, we discussed patient. Critical high WBC of 30 reported. No new orders at this time. Will continue to monitor patient.
--- NOTE | 2020-08-05 07:16 | NUR ---
Justa Bryan made aware of Patient critical high WBC of 30. No new orders at this time, she will see patient this am
--- NOTE | 2020-08-05 08:27 | NUR ---
Patient reports just feeling irritable. Reports pain elevated with movement. His main complaint is his scrotum. Redness & swelling present. Ice pack provided for comfort. Patient denies difficulty with urination. He states he continues to have loose stools. His midline abdominal incision continues to drain-dressing cdi at this time. breakfast ordered-he denies nausea. Will continue to monitor
--- NOTE | 2020-08-05 09:37 | NUR ---
Spoke to . Ct scan ordered. Patient made aware & knows he is to remain NPO for scan. He had already had breakfast. I did speak to rebekah in Ct and make her aware he had breakfast. Will monitor.
--- NOTE | 2020-08-05 09:56 | NUR ---
Hatchery Man attended clinical rounds with the team. The patient to have a CT scan this day. The patient's WBC is high. No discharge planned for this day.
--- NOTE | 2020-08-05 12:43 | NUR ---
Patient taken to CT scan. Scan completed & rounded. PLan of care reviewed. New dressing applied to midline incision, he continues to have serous drainage. One tab norco provided after scan for elevated pain with movement. Lunch ordered.
--- NOTE | 2020-08-05 16:55 | NUR ---
Patient showered. Reports it was "heaven". Dinner ordered. Denies nausea. Pain managed with norco. Main complaint continues to be his scrotum. New dressing to midline incision. drainage remains serous. Will monitor.
--- NOTE | 2020-08-05 20:11 | NUR ---
Patient sitting up in chair. Tolerated dinner. denies nausea. Tpn per order to [facility]. ABdominal dressing intact. Report to [facility]. CT scan impression was called at read to .
--- NOTE | 2020-08-05 20:30 | NUR ---
PATIENT WAS SITTING ON THE CHAIR.ASSESSMENT DONE,REPORTS OF PAIN AT 8.MEDS GIVEN PER JUN.BP WAS 114/49MM/HG PROVIDER NOTIFIED SAID ITS OK TO GIVE LOPRESSOR 50MG.NO OTHER NEEDS AT THIS TIME.
[2020-08-06] VITALS (7 sets, daily range): BP systolic 110–124; BP diastolic 45–66; PULSE 46–97; TEMP 98.2–99.1
--- NOTE | 2020-08-06 05:59 | NUR ---
PATIENT HAD A CALM NIGHT.DUE MEDS GIVEN.NO OTHER NEEDS AT THIS TIME.
--- NOTE | 2020-08-06 06:01 | NUR ---
THE DRESSING IS CDI.NO DRESSING CHANGE DONE.
--- NOTE | 2020-08-06 06:55 | NUR ---
Pt is sitting up in the chair, no needs at this time. Discussed breakfast with him and gave him his phone. Will continue to monitor
[2020-08-06 07:16] LABS: MEAN CELL VOLUME 82 fl (80.0-100.0); MEAN CORPUSCULAR HGB CONC 30 g/dl (33.0-37.0); PLATELET COUNT 472 K/mm3 (130-400); RED BLOOD COUNT 3.12 M/mm3 (4.20-5.60); REDCELL DISTRIBUTION WIDTH-CV 17.3 % (11.5-14.5)
[2020-08-06 07:25] LABS: HEMATOCRIT 25.6 % (42.0-52.0); HEMOGLOBIN 7.7 g/dl (13.5-18.0); MEAN CORPUSCULAR HEMOGLOBIN 25 pg (27.0-31.0)
[2020-08-06 07:31] LABS: ALANINE AMINOTRANSFERASE 16 U/L (4-49); ALBUMIN 2.4 gm/dL (3.5-5.0); ALKALINE PHOSPHATASE 157 U/L (50-136); ANION GAP 5 mmol/L (7-16); AST,SGOT 40 U/L (15-37); BILIRUBIN,TOTAL < 0.1 mg/dL (0.0-1.0); BLOOD UREA NITROGEN 27 mg/dL (9-20); CALCIUM 7.4 mg/dL (8.4-10.2); CARBON DIOXIDE 24 mmol/L (22-30); CHLORIDE 104 mmol/L (98-107); CREATININE, serum 0.74 (0.66-1.25); GLUCOSE 137 mg/dL (74-106); POTASSIUM 3.9 mmol/L (3.4-5.0); SODIUM 134 mmol/L (137-145); TOTAL PROTEIN 5.5 gm/dL (6.4-8.2)
[2020-08-06 08:31] LABS: ANISOCYTOSIS 1+; BAND 13 % (0-10); EOSINOPHIL 1 % (0-4); HYPOCHROMIA 1+; LYMPHOCYTE 12 % (20.0-51.0); METAMYELOCYTE 1 % (0-0); MYELOCYTE 1 % (0-0); NEUTROPHILS 65 % (42.0-75.2); PLATELET ESTIMATE INCREASED (NORMAL)
--- NOTE | 2020-08-06 08:44 | NUR ---
Dr Leiva in to see patient. Dressing changed to airstrip with gauze to the lower part of his incision. No drainge noted during dressing change. Pt does have the scrotal pain, but minimal incisional pain. Offered to elevated his scrotum and he stated that he is okay right now and that it sometimes makes it worse. Pt has had an tolerated a low fiber breakfast. No needs verbalized, will continue to monitor
--- NOTE | 2020-08-06 09:21 | NUR ---
Emergency Physician attended clinical rounds with the team. The patient's TPN will be discontinued this day and his diet will be advanced. PT is recommending home.
--- NOTE | 2020-08-06 09:30 | NUR ---
Dr Luna in to see patient, new orders received. Pt doing well, no needs, he is sitting up in the chair.
--- NOTE | 2020-08-06 18:04 | NUR ---
Pt has done well today, minimal pain complaints. He has sat up in the chair most of the day. Gone on several walks with no complaints. Pt prefers to not have anything under his scrotum. TPN stopped per order.
--- NOTE | 2020-08-06 20:00 | NUR ---
Pt. sitting up in chair at this time. Pt. is A&OX3, assessment complete. PICC to rt. upper arm patent. Pt. ambulated in the [place] independently. Pt. reports pain to the abdomen at a 6 on pain scale, will give pain meds per orders. Pt. denies further needs, call light within reach.
[2020-08-07] VITALS (7 sets, daily range): BP systolic 108–144; BP diastolic 48–65; PULSE 62–100; TEMP 98–99.2
--- NOTE | 2020-08-07 07:15 | NUR ---
Lying in bed with eyes closed. Opens eyes when name called out. Alert and oriented x4. Rates pain in abd 6/10, describes as sore, increases with coughing and certain movements. Patient says that he had bowel movement last night and was scared to let it come but felt better when it was done. Mid abd incision with airstrip CDI. Lap sites x3 to left abd with mark intact. Scrotum with 3+ edema, wearing scrotal support at this time and feels that it has helped. Some redness and scaling to scrotum. Patient says that he thinks one more day in the hospital would be good and possibly discharge tomorrow. Has ordered breakfast already. Denies additional needs at this time.
[2020-08-07 07:19] LABS: ALBUMIN 2.5 gm/dL (3.5-5.0); BILIRUBIN,TOTAL 0.1 mg/dL (0.0-1.0); CALCIUM 7.4 mg/dL (8.4-10.2); CREATININE, serum 0.8 (0.66-1.25); MAGNESIUM 1.8 mg/dL (1.6-2.3); MEAN CELL VOLUME 81 fl (80.0-100.0); MEAN CORPUSCULAR HGB CONC 31 g/dl (33.0-37.0); MEAN PLATELET VOLUME 9.3 fl (7.4-10.4); PHOSPHOROUS 3.3 mg/dL (2.5-4.5); PLATELET COUNT 439 K/mm3 (130-400); POTASSIUM 3.6 mmol/L (3.4-5.0); RED BLOOD COUNT 3.29 M/mm3 (4.20-5.60); REDCELL DISTRIBUTION WIDTH-CV 17.4 % (11.5-14.5); TOTAL PROTEIN 5.8 gm/dL (6.4-8.2)
[2020-08-07 07:25] LABS: HEMATOCRIT 26.7 % (42.0-52.0); HEMOGLOBIN 8.2 g/dl (13.5-18.0); MEAN CORPUSCULAR HEMOGLOBIN 25 pg (27.0-31.0)
[2020-08-07 07:26] LABS: PRE ALBUMIN 13.7 mg/dL (17.6-36.0)
--- NOTE | 2020-08-07 08:36 | NUR ---
Up walking in halls with use of walker. Gait steady.
[2020-08-07 09:08] LABS: BAND 9 % (0-10); EOSINOPHIL 5 % (0-4); LYMPHOCYTE 8 % (20.0-51.0); METAMYELOCYTE 2 % (0-0); NEUTROPHILS 67 % (42.0-75.2)
[2020-08-07 09:09] LABS: PLATELET ESTIMATE INCREASED (NORMAL)
[2020-08-07 09:14] LABS: HYPOCHROMIA 3+
[2020-08-07 09:15] LABS: ANISOCYTOSIS 1+
--- NOTE | 2020-08-07 11:13 | NUR ---
Ambulating in halls with walker. Gait steady.
[2020-08-07] MEDS ORDERED: LOPRESSOR 550 MG/TAB PO (11:35)
--- NOTE | 2020-08-07 11:35 | NUR ---
Bucket Pusher attended clinical rounds with the team. The patient is to tentatively discharge tomorrow, 08/08. The patient is independent. The patient is currenlty on IV antiobiotics. After rounds, Dr. Eng contacted the patient's nurse regarding antibiotics at discharge. The patient will be on oral antibiotics at discharge.
--- NOTE | 2020-08-07 11:37 | NUR ---
Sitting up in chair watching TV. Dr. Winn was in to see patient. Dr. Eng called, update provided, and he says that the patient will go home on PO antibiotics. Patient is informed of this and is excited. Tele dc'd per Dr. Winn's orders. Patient rating pain in abd 6/10, tolerable, denies need for patient medication at this time. No further needs.
--- NOTE | 2020-08-07 13:12 | NUR ---
Sitting up in recliner talking on cell phone. Patient says that he is doing okay. Sprite provided per patient request. Patient a little tearful but says he is okay. Denies additional needs.
--- NOTE | 2020-08-07 15:42 | NUR ---
Sitting up in chair talking with aunt in room. Rates pain in abd and scrotum 5/10, tolerable and denies pain medication at this time. Dressing to mid abd incision with drainage on lower portion of dressing. Dressing removed. Site cleaned with saline soaked gauze. Area patted dry. Apply two 4x4s to area under umbilicus where drainage is coming from and then cover with an airstrip. Patient tolerates without difficulty. Patient denies additional needs at this time.
--- NOTE | 2020-08-07 18:10 | NUR ---
Sitting up in recliner watching TV. Says that he is doing okay at this time. Has ordered dinner and is waiting on it to arrive. Denies additional needs at this time.
--- NOTE | 2020-08-07 21:15 | NUR ---
Pt. sitting up in bed. Pt. is A&OX3, assessment complete. PICC to rt. upper arm patent. Pt. reports pain at a 5 on pain scale, gave pain meds per orders. Pt. ambulated in the halls independently. Pt. denies further needs, call light within reach.
[2020-08-08 03:36] VITALS: BP 92/54; PULSE 84; TEMP 98.5
[2020-08-08 06:40] LABS: MEAN CELL VOLUME 82 fl (80.0-100.0); MEAN CORPUSCULAR HGB CONC 30 g/dl (33.0-37.0); MEAN PLATELET VOLUME 9.3 fl (7.4-10.4); PLATELET COUNT 428 K/mm3 (130-400); RED BLOOD COUNT 3.17 M/mm3 (4.20-5.60); REDCELL DISTRIBUTION WIDTH-CV 17.3 % (11.5-14.5)
[2020-08-08 06:47] LABS: HEMOGLOBIN 7.7 g/dl (13.5-18.0); MEAN CORPUSCULAR HEMOGLOBIN 24 pg (27.0-31.0)
--- NOTE | 2020-08-08 06:55 | NUR ---
Lying in bed with eyes open. Alert and oriented x4. Minimal pain at this time. Discuss that when he gets discharged we can give him pain medication 30-60 minutes prior to leaving. Patient agrees to this plan. Mid abd incision with airstrip dressing CDI. Left abd lap sites with all edges well approximated, mark intact, no redness/swelling/discharge. Wearing scrotal support. Scrotal edema 2+ at this time, some redness to scrotum. Patient says that he is excited to go home but scared. Reassurance provided to the patient. Patient says that he is going to order breakfast then go for a walk. Denies additional needs at this time.
[2020-08-08 07:11] LABS: CALCIUM 7.7 mg/dL (8.4-10.2); CREATININE, serum 0.81 (0.66-1.25); POTASSIUM 4.1 mmol/L (3.4-5.0)
[2020-08-08 07:12] LABS: ANISOCYTOSIS 2+; BAND 5 % (0-10); EOSINOPHIL 1 % (0-4); HYPOCHROMIA 2+; LYMPHOCYTE 16 % (20.0-51.0); NEUTROPHILS 75 % (42.0-75.2); PLATELET ESTIMATE INCREASED (NORMAL)
[2020-08-08 07:13] VITALS: BP 121/63; PULSE 86; TEMP 98.5
[2020-08-08] MEDS ORDERED: LEVAQUIN 5500 MG/TA1 PO (08:35)
[2020-08-08] MEDS ORDERED: FLAGYL500 MG PO (08:35)
[2020-08-08] MEDS ORDERED: NORCO 325 MG-51 TAB PO (08:36)
--- NOTE | 2020-08-08 08:41 | NUR ---
Discuss with the patient process to remove mrak from three lap sites on left abd and also dressing change to mid abd incision. Lap sites cleaned with alcohol pad. Two mark removed from top lap site on left abd, one staple removed from mid lap site on left abd, and one staple removed from lower lap site on left abd. All edges well approximated, no redness/swelling/discharge. Remove air strip and two 4x4s from mid abd incision. Very scant serosanguinous drainage on 4x4s. Apply two 4x4s to area below umbilicus where the drainage was coming from. Explain that Dr. Valle says that the airstrip can stay off. Discuss with the patient showering and reapplying dressings and when to leave open to air. Patient verbalizes understanding. Says he is excited to go home and scared at the same time. Denies additional needs at this time.
--- NOTE | 2020-08-08 08:47 | NUR ---
Silk Examiner attended clinical rounds with the team. The patient it to tentatively discharge home today, 08/08 with two oral antiobiotic for two weeks. The patient is independent and ready for discharge. Hospitalist completed paperwork the patient needed for the patient's employment. There are no additional needs.
--- NOTE | 2020-08-08 10:27 | NUR ---
Provided [place] per patient request to prepare for discharge.
--- NOTE | 2020-08-08 10:37 | NUR ---
Review all discharge instructions with the patient. Questions answered. Patient verbalizes understanding to all and signs discharge paperwork. Discharge packet provided to the patient. Assist in packing some of patient belongings. Patient says that his girlfriend Marilee should be on her way to pick him up. Explain that when he is ready to leave to use his call light and we will assist him out. Patient verbalizes udnerstanding and denies needs.
--- NOTE | 2020-08-08 10:53 | NUR ---
Patient calls out that Marilee is here to take him home. YUNIEL Callejas, assists patient out to POV with all personal belongings via wheelchair.
== END 2020-08-08 10:54 | disposition home or self-care (01) | DRG 853 ==
LOC: COL.ER 09:32 → SURG 11:43 → ICU 11:43 → SURG 07-31 11:30
PROVIDERS: Emergency Medicine; Hospitalist; Internal Medicine; Internal Medicine Pulmonary Disease; Physician Assistant; Surgery; ADMIT Surgery
PROC: 5A09457 Assistance with Respiratory Ventilation, 24-96 Consecutive Hours, Continuous Positive Airway Pressure (ICD-10-PCS; 2020-07-28)
PROC: 02HV33Z Insertion of Infusion Device into Superior Vena Cava, Percutaneous Approach (ICD-10-PCS; 2020-07-28)
PROC: 0DN84ZZ Release Small Intestine, Percutaneous Endoscopic Approach (ICD-10-PCS; principal; 2020-07-28 12:30)
PROC: 0DTH0ZZ Resection of Cecum, Open Approach (ICD-10-PCS; 2020-07-28 12:30)
PROC: 0DBV0ZZ Excision of Mesentery, Open Approach (ICD-10-PCS; 2020-07-28 12:30)
PROC: 02HV33Z Insertion of Infusion Device into Superior Vena Cava, Percutaneous Approach (ICD-10-PCS; 2020-07-30)
DX: A41.9 Sepsis, unspecified organism (principal); K63.1 Perforation of intestine (nontraumatic); K65.9 Peritonitis, unspecified; R65.21 Severe sepsis with septic shock; I50.23 Acute on chronic systolic (congestive) heart failure; E87.1 Hypo-osmolality and hyponatremia; E87.4 Mixed disorder of acid-base balance; E87.2 Acidosis; Z20.822 Contact with and (suspected) exposure to COVID-19; I42.8 Other cardiomyopathies; K56.7 Ileus, unspecified; K50.90 Crohn's disease, unspecified, without complications; N17.9 Acute kidney failure, unspecified; D62 Acute posthemorrhagic anemia; E46 Unspecified protein-calorie malnutrition; E87.8 Other disorders of electrolyte and fluid balance, not elsewhere classified; F41.9 Anxiety disorder, unspecified; G47.33 Obstructive sleep apnea (adult) (pediatric); K21.9 Gastro-esophageal reflux disease without esophagitis; I11.0 Hypertensive heart disease with heart failure; N43.3 Hydrocele, unspecified; R73.03 Prediabetes; R00.0 Tachycardia, unspecified; R11.2 Nausea with vomiting, unspecified; E66.9 Obesity, unspecified; Z68.36 Body mass index [BMI] 36.0-36.9, adult; F17.210 Nicotine dependence, cigarettes, uncomplicated; Z79.82 Long term (current) use of aspirin; Z95.818 Presence of other cardiac implants and grafts; Z53.31 Laparoscopic surgical procedure converted to open procedure; Z88.0 Allergy status to penicillin
CPT/HCPCS: 99223; 99231-AI; 99232-AI; 99233-AI; A4314; A9284; C1751; C9113; J0330; J0610; J0744; J1100; J1170; J1450; J1650; J1815; J1940; J1956; J2185; J2405; J2550; J2704; J2765; J3010; J3480; J7060; J7120; J7131; Q9967